=== PATIENT | female | born 1990 | race African-American/Black ===

== ENCOUNTER 2020-06-01 21:30 | Inpatient (IN) | payer OTHER ==
[2020-06-01 22:47] VITALS: BMI 33.4
[2020-06-01] MEDS ORDERED: DEXTROSE 5%-LACTATED RINGERS 1,000 ML IV SCH (23:30)
[2020-06-01 23:34] LABS: BASO % 0.2 % (0-2.0); EOS % 1.3 % (0-4.5); HEMOGLOBIN 11.3 GM/dL (10.7-15.3); LYMPH % 12.3 % (8-40); MCH 31.1 pg (25.7-33.7); MCHC 33.2 g/dl (32.0-36.0); MEAN CELL VOLUME 93.7 fl (80-96); MEAN PLT VOLUME 10.7 fl (7.5-11.1); NEUT % 79.2 % (42.8-82.8); PLATELET COUNT 187 K/MM3 (134-434); RBC 3.62 M/mm3 (3.60-5.2); RDW 13.4 % (11.6-15.6); WHITE BLOOD COUNT 12.4 K/mm3 (4.0-10.0)
[2020-06-01 23:44] LABS: INR 0.98 (0.83-1.09); PROTHROMBIN TIME (PATIENT) 11.6 SEC (9.7-13.0)
[2020-06-01 23:47] LABS: ACTIVATED PTT 25.6 SECONDS (25.2-36.5)
[2020-06-02] LABS: BLOOD UREA NITROGEN 6.4 mg/dL (7-18); CREATININE 0.6 mg/dL (0.55-1.3); POTASSIUM 3.8 mmol/L (3.5-5.1)
[2020-06-02] MEDS ORDERED: DEXTROSE 5%-LACTATED RINGERS 1,000 ML IV SCH ×2 (08:00→21:45)
[2020-06-02] MEDS ORDERED: PROMETHAZINE HCL 25 MG/1 ML VIAL IVPB ONE (08:00)
[2020-06-02] MEDS ORDERED: BUTORPHANOL TARTRATE 1 MG/ML VIAL IVPB ONE (08:00)
--- NOTE | 2020-06-02 08:04 | HP ---
Past Medical History - Admission Chief Complaint: post date for induction History Source: Patient Limitations to Obtaining History: No Limitations - Past Medical History URGENT CARE PHYSICIAN ASSISTANT: No: Alzheimer's, CVA, Dementia, Migraine, Multiple Sclerosis, Peripheral Neuropathy, Parkinson's, Seizure, Syncope, TIA, Vertigo, Other Cardiovascular: No: AFIB, Aneurysm, Aortic Insufficiency, Aortic Stenosis, CAD, CHF, Deep Vein Thrombosis, HTN, Hyperlipdemia, VA, Mitral Insufficiency, Mitral Stenosis, Murmur, Pulmonary Hypertension, Other Pulmonary: No: Asthma, Bronchitis, Cancer, COPD, O2 Dependent, Pneumonia, Previously Intubated, Pulmonary Embolus, Pulmonary Fibrosis, Sleep Apnea, Other Gastrointestinal: No: Ascites, Cancer, Constipation, Crohn's Disease, Diverticulitis, Diverticulosis, Esophageal Varices, Gastritis, GERD, GI Bleed, Hemorrhoids, Hiatal Hernia, Inflamatory Bowel Disease, Irritable Bowel Disease, Pancreatitis, Peptic Ulcer Disease, Ulcerative Colitis, Other Hepatobiliary: No: Cirrhosis, Cholelithiasis, Cholecystitis, Choledo cholithiasis, Hepatitis A, Hepatitis B, Hepatitis C, Other Renal/: No: Renal Failure, Renal Inusuff, BPH, Cancer, Hematuria, Hemodialysis, Neurogenic Bladder, Renal Calculi, UTI, Other Reproductive: No: Ectopic , Endometriosis, Fibroids, PID, Polycystic Ovary Syndrome, Postmenopausal, Other ...: 1 ...Para: 0 ...Term: 0 ...: 0 ...Spon : 0 ...Induced : 0 ...Living Children: 0 ...Multiple Gestation: 0 ... Weeks Gestation by Dates: 40.6 ...EDC by Dates: 05/26/20 Heme/Onc: No: Anemia, B12 Deficiency, Bleeding Disorder, Cancer, Current Chemotherapy, Current Radiation Therapy, Hemochromatosis, Hypercoaguable State, Myeloproliferative Synd, Sickle Cell Disease, Sickle Cell Trait, Thrombocytopenia, Other Infectious Disease: No: AIDS, C-Diff, Herpes Zoster, HIV, MRSA, STD's, Tuberculosis, VREF, Other Psych: No: Addictions, Anxiety, Bipolar, Depression, Panic, Psychosis, Schizophrenia, Other Musculoskeletal: No: Bursitis, Chronic low back pain, Hemiparesis, Hemiplegia, Osteoarthritis, Paraplegia, Other Rheumatology: No: Fibromyalgia, Gout, Lupus, Rheumatoid Arthritis, Sarcoidosis, Vasculitis, Other ENT: No: Allergic Rhinitis, Sinusitis, Other Endocrine: No: [place] Line's Disease, Sumner's Disease, Diabetes Insipidus, Diabetes Mellitus, Hyperparathyroidism, Hyperthyroidism, Hypothyroidism, Osteopenia, SIADH, Other Dermatology: No: Basal Cell, Cellulitis, Eczema, Melanoma, Psoriasis, Squamous Cell, Other - Past Surgical History Past Surgical History: No: None, AAA Repair, AICD, Amputation, Appendectomy, Arthrosocopy, AV Fistula/Graft, Bariatric Surgery, Breast Biopsy, Bypass, CABG, Carotid Endarterectomy, Cataract Removal, Cholecystectomy, Colectomy, Colonoscopy, Colostomy, Craniotomy, , Cystectomy, Hernia Repair, Hysterectomy, Ileal Conduit, Ileosotomy, Joint Replacement, Kidney Transplant, Laminectomy, Liver Transplant, Mastectomy, Nephrectomy, Oopherectomy, Orchiectomy, Permanent Pacemaker, Prostatectomy, Splenectomy, Stent, Thoracotomy, TURP, Tonsillectomy, Tubal Ligation, Upper Endoscopy, Valve Replacement, Vasectomy, Vein Stripping/Ligation Hx Myomectomy: No Hx Transabdominal Cerclage: No - Advance Directives Advance Directives: Yes: Living Will - Smoking History Smoking history: Never smoked Have you smoked in the past 12 months: No - Alcohol/Substance Use Hx Alcohol Use: No History of Substance Use: reports: None - Social History Usual Living Arrangement: Yes: With Significant Other Do you think of yourself as: Straight/Heterosexual ADL: Independent History of Recent Travel: No Home Medications - Allergies Allergies/Adverse Reactions: Allergies Allergy/AdvReac Type Severity Reaction Status Date / Time azithromycin [From Zithromax] Allergy Mild Rash Verified 06/01/20 22:05 - Home Medications Home Medications: Ambulatory Orders Mv-Mn/Iron/FA/Herbal/Digestive [ One Tablet] 1 each PO DAILY 06/01/20 Family Medical History Family History: Denies Review of Systems - Review of Systems Constitutional: reports: No Symptoms Eyes: reports: No Symptoms HENT: reports: No Symptoms Neck: reports: No Symptoms Cardiovascular: reports: No Symptoms Respiratory: reports: No Symptoms Gastrointestinal: reports: No Symptoms Genitourinary: reports: No Symptoms Breasts: reports: No Symptoms Reported Musculoskeletal: reports: No Symptoms Integumentary: reports: No Symptoms Neurological: reports: No Symptoms Endocrine: reports: No Symptoms Hematology/Lymphatic: reports: No Symptoms Psychiatric: reports: No Symptoms Physical Exam - Maternity Vital Signs: Vital Signs Temperature 98.2 F 06/02/20 06:00 Pulse Rate 83 06/02/20 06:00 Respiratory Rate 18 06/02/20 06:00 Blood Pressure 93/50 L 06/02/20 06:00 O2 Sat by Pulse Oximetry (%) Constitutional: Yes: Well Nourished, No Distress, Calm Eyes: Yes: WNL, Conjunctiva Clear, EOM Intact HENT: Yes: WNL, Atraumatic, Normocephalic Neck: Yes: WNL, Supple, Trachea Midline Cardiovascular: Yes: WNL, Regular Rate and Rhythm Breast(s): Yes: WNL - Abdominal Exam/OB Number of Fetuses: Single Presentation: Vertex Contractions: Yes Regularity: Irregular Intensity: Mild Monitor Mode: External Heart Rate Location: [facility] Category: I Accelerations: Uniform Decelerations: None - Vaginal Exam/OB Vaginal Bleeding: No Speculum Exam: No Dilatation (cm): 1 Effacement (%): 60 Amniotic Membrane Status: Intact Presentation: Vertex/Position Station: -2 - Physical Exam Musculoskeletal: Yes: WNL Extremities: Yes: WNL Edema: Yes Edema: LUE: 1+, RUE: 1+, LLE: 1+, RLE: 1+ Integumentary: Yes: WNL Deep Tendon Reflex Grade: Normal +2 ...Motor Strength: WNL Psychiatric: Yes: WNL, Alert, Oriented - Labs Lab Results: CBC, BMP 06/01/20 22:20 06/01/20 22:20 Hemorrhage Risk Assessment - Risk Factors Medium Risk Factors: Yes: None High Risk Factors: Yes: None Risk Score: 1 Risk Level: Medium Risk Assessment/Plan for induction, hx of tachy last night, and recoverable deccels
[2020-06-02] MEDS ORDERED: OXYTOCIN 30 UNITS in 0.9% NS 30 UNIT/500 ML INFUS.BAG IVPB SCH (08:15)
[2020-06-02] MEDS ORDERED: OXYTOCIN 30 UNITS in 0.9% NS 30 UNIT/500 ML INFUS.BAG IVPB ONE (08:19)
[2020-06-02] MEDS ORDERED: PCA PUMP NR ONE ×2 (14:14→19:11)
[2020-06-02] MEDS ORDERED: FENTANYL/BUPIVACAINE/NS/PF - PCEA - 50 ML DISP.SYRIN EP ONE ×3 (14:15→19:12)
[2020-06-02] MEDS ORDERED: NALOXONE HCL 0.4 MG/ML VIAL IVPUSH PRN (15:02)
[2020-06-02] MEDS ORDERED: FENTANYL/BUPIVACAINE/NS/PF - PCEA - 50 ML DISP.SYRIN EP SCH (15:15)
[2020-06-02] MEDS ORDERED: ELECTROLYTE-148 SOLN 1,000 ML IV SCH ×2 (17:45→21:45)
[2020-06-02] MEDS ORDERED: ELECTROLYTE-148 SOLN 500 ML IV ONE (21:43)
[2020-06-02] MEDS ORDERED: CITRIC ACID/SODIUM CITRATE 30 ML UNIT-DOSE CUP PO ONE (21:43)
--- NOTE | 2020-06-02 21:46 | PN ---
Progress Note (short form) - Note Progress Note: 1 pm, vidal inplaced, 1 cm -2, 60%, arom for pitocin
--- NOTE | 2020-06-02 21:47 | PN ---
Progress Note (short form) - Note Progress Note: 6 pm, 4 to 5 cm, kellyoxana fell out, -2, op, nst reactive, continue pitocin , comfort w epidural
--- NOTE | 2020-06-02 21:48 | PN ---
Progress Note (short form) - Note Progress Note: 930 pm, late deccel, and variable deccel, no cervical change x 5 hrs, c/o pain again, will proceed for c s
--- NOTE | 2020-06-02 21:48 | PN ---
Progress Note (short form) - Note Progress Note: 8pm, 4 to 5 cm, same cervix, top off given, nst reactive, continue pitocin.,
[2020-06-02] MEDS ORDERED: morphine SULFATE/PF 0.5 MG/ML (2cc Syringe - QUVA) ONE ×2 (21:59)
[2020-06-02] MEDS ORDERED: OXYTOCIN 20 UNITS in 0.9% NS 20 UNIT/1,000 ML INFUS.BAG IV ONE (22:43)
[2020-06-02] MEDS ORDERED: SENNOSIDES/DOCUSATE COMBO (SENNA PLUS) TABLET (UD) PO PRN (23:08)
[2020-06-02] MEDS ORDERED: oxyCODONE HCL 5 MG TABLET PO PRN ×2 (23:08)
[2020-06-02] MEDS ORDERED: METHYLERGONOVINE MALEATE 0.2 MG/1 ML AMP IM PRN (23:08)
--- NOTE | 2020-06-02 23:13 | OP ---
Operative Note - Note: Operative Date: 06/02/20 Pre-Operative Diagnosis: non reassuring fht, f t progress, op , post date Operation: primary lt c s Post-Operative Diagnosis: Same as Pre-op Surgeon: Adrian Cosby Supervisor Parachute Manufacturing: Omar Arnold Anesthesiologist/ROAD MACHINERY INSPECTOR: Beau Lyons Anesthesia: Epidural Estimated Blood Loss (mls): 600 (no complications ) Operative Report Dictated: Yes
[2020-06-02] MEDS ORDERED: OXYTOCIN 20 UNITS in 0.9% NS 20 UNIT/1,000 ML INFUS.BAG IV SCH (23:15)
[2020-06-03] MEDS ORDERED: IBUPROFEN 800 MG/8 ML IJ IVPB ONE (00:10)
[2020-06-03] MEDS: IBUPROFEN 800 MG/8 ML IJ IVPB PRN ×2 (00:15→11:27)
[2020-06-03 07:28] LABS: BASO % 0.3 % (0-2.0); EOS % 0.5 % (0-4.5); HEMATOCRIT 30.8 % (32.4-45.2); HEMOGLOBIN 10.1 GM/dL (10.7-15.3); LYMPH % 5.4 % (8-40); MCH 30.9 pg (25.7-33.7); MCHC 32.9 g/dl (32.0-36.0); MEAN CELL VOLUME 93.9 fl (80-96); MONO % 7.5 % (3.8-10.2); NEUT % 86.3 % (42.8-82.8); PLATELET COUNT 154 K/MM3 (134-434); RBC 3.28 M/mm3 (3.60-5.2); RDW 13.5 % (11.6-15.6)
[2020-06-03] MEDS: PRENATAL VITAMINS W/ FOLIC ACID TABLET (FP) PO SCH ×2 (09:38→09:40)
[2020-06-03] MEDS: ENOXAPARIN NA (PORCINE) 40 MG/0.4 ML DISP.SYRIN SQ SCH (09:38)
--- NOTE | 2020-06-03 15:38 | PN ---
Progress Note (short form) - Note Progress Note: 29 F s/p C/S. pt w/o complaints. pain controlled. good result of anesthetic care
[2020-06-03] MEDS: ACETAMINOPHEN 325 MG TABLET (FP) PO PRN (16:26)
[2020-06-03] MEDS: SIMETHICONE 80 MG TAB.CHEW (FP) PO PRN (16:26)
[2020-06-03] MEDS: IBUPROFEN 600 MG TABLET (FP) PO PRN (16:27)
--- NOTE | 2020-06-03 20:18 | PN ---
Post Progress Note Post Day: 1 Type of Delivery: Primary C/S Vital Signs: Vital Signs Temperature 98.6 F 06/03/20 18:00 Pulse Rate 82 06/03/20 18:00 Respiratory Rate 20 06/03/20 18:00 Blood Pressure 100/63 06/03/20 18:00 O2 Sat by Pulse Oximetry (%) 96 06/03/20 01:00 Breast Exam: Yes: Soft Uterus: Yes: Fundus Firm, Fundus below umbilicus Incision: Yes: Dressing dry and intact, Sutures intact Abdomen/GI: Yes: Abdomen soft, Passing flatus Lochia: Yes: Serosa Lochia, amount: Small Extremities: Yes: Calves non-tender Perineum: Yes: Intact Activity: Ambulating (doing well, oob , regular diet ) - Labs Labs: CBC WBC 17.0 K/mm3 (4.0-10.0) H 06/03/20 07:12 RBC 3.28 M/mm3 (3.60-5.2) L 06/03/20 07:12 Hgb 10.1 GM/dL (10.7-15.3) L 06/03/20 07:12 Hct 30.8 % (32.4-45.2) L 06/03/20 07:12 MCV 93.9 fl (80-96) 06/03/20 07:12 MCH 30.9 pg (25.7-33.7) 06/03/20 07:12 MCHC 32.9 g/dl (32.0-36.0) 06/03/20 07:12 RDW 13.5 % (11.6-15.6) 06/03/20 07:12 Plt Count 154 K/MM3 (134-434) 06/03/20 07:12 MPV 10.0 fl (7.5-11.1) 06/03/20 07:12 Absolute Neuts (auto) 14.7 K/mm3 (1.5-8.0) H 06/03/20 07:12 Neutrophils % 86.3 % (42.8-82.8) H 06/03/20 07:12 Lymphocytes % 5.4 % (8-40) L D 06/03/20 07:12 Monocytes % 7.5 % (3.8-10.2) 06/03/20 07:12 Eosinophils % 0.5 % (0-4.5) 06/03/20 07:12 Basophils % 0.3 % (0-2.0) 06/03/20 07:12 Nucleated RBC % 0 % (0-0) 06/03/20 07:12
--- NOTE | 2020-06-03 21:59 | OP ---
DATE OF OPERATION: 06/03/2020 PREOPERATIVE DIAGNOSES: Non-reassuring heart tracing, failure to progress, occiput posterior position, and post dates. POSTOPERATIVE DIAGNOSES: Non-reassuring heart tracing, failure to progress, occiput posterior position, and post dates. PROCEDURE: Primary low transverse section. SURGEON: Adrian Cosby MD CRM DYNAMICS DEVELOPER: KATHLEEN Royal ANESTHESIOLOGIST: Dr. Lyons. ANESTHESIA: Epidural. INDICATION: A 29-year-old female patient, 41 weeks and 1 day, came into the hospital for induction process, and the patient could not take it anymore either, requested to be induced. So, patient came in the night before, was supposed to get Cervidil. However, patient developed tachycardia and variable decelerations, and her cervix was 1 cm, and so, Cervidil was on hold because of nonreassuring, category 2 tracing at this point. heart rate tracing did recover to be category 1; so, Pitocin was started in the morning, and the patient had Escalante balloon. Cook balloon was placed around 1 o'clock in the afternoon, and the patient had Pitocin going since about 8-9 o'clock in the morning. Patient had epidural around 3-4 o'clock in the afternoon. She was about 4-5 cm after the Escalante balloon fell out around 5 o'clock in the afternoon. However, after 4 or 5 o'clock, baby was found to be OP presentation and had never progressed with 5 cm until another 5 hours. The baby started having some variable decelerations and late decelerations, and the decision was made for nonreassuring heart rate tracing and category 2 and remote from delivery and failure to progress. DESCRIPTION OF PROCEDURE: Patient was taken to the OR and placed on the operating table in supine position. After epidural anesthesia was re-topped off, patient had already had epidural. So, patient's abdomen and pelvis were prepped and draped in the usual sterile manner. Pfannenstiel incision was made. Incision was made through skin and subcutaneous tissue, and the fascia was nicked in the midline. The fascia extended bilaterally. Intraperitoneal cavity was entered. Bladder flap was not created. The low transverse segment was entered. Baby delivered from OP presentation. Baby was handed over to research test engine evaluator after umbilical cord doubly clamped and cut. Cord blood gases were obtained. Placenta was removed. Uterus was closed in single layer, first in interlocking Vicryl sutures. Good hemostasis. Both gutters were clean. Both ovaries, fallopian tubes, and uterus were within normal limits. No complications. She tolerated the procedure well. The peritoneum was closed. The fascia was closed. Skin was closed. She was transferred to recovery room in stable condition. MD JARED MARTINEZ/[id number]
[2020-06-03] MEDS ORDERED: BISACODYL 10 MG SUPP.RECT RC PRN (23:08)
[2020-06-04] MEDS: IBUPROFEN 600 MG TABLET (FP) PO PRN ×4 (01:12→21:52)
[2020-06-04] MEDS: SIMETHICONE 80 MG TAB.CHEW (FP) PO PRN ×4 (01:12→21:52)
[2020-06-04] MEDS: ACETAMINOPHEN 325 MG TABLET (FP) PO PRN ×4 (01:12→21:53)
[2020-06-04] MEDS: ENOXAPARIN NA (PORCINE) 40 MG/0.4 ML DISP.SYRIN SQ SCH (09:36)
[2020-06-04] MEDS: PRENATAL VITAMINS W/ FOLIC ACID TABLET (FP) PO SCH (09:40)
--- NOTE | 2020-06-04 11:52 | PN ---
Post Progress Note Post Day: 2 Type of Delivery: Primary C/S Vital Signs: Vital Signs Temperature 98.1 F 06/04/20 09:42 Pulse Rate 81 06/04/20 09:42 Respiratory Rate 20 06/04/20 09:42 Blood Pressure 96/63 06/04/20 09:42 O2 Sat by Pulse Oximetry (%) 96 06/03/20 01:00 Breast Exam: Yes: Soft Uterus: Yes: Fundus Firm, Fundus below umbilicus, Non-tender Incision: Yes: Dressing dry and intact, Sutures intact Abdomen/GI: Yes: Abdomen soft, Passing flatus, Tolerating PO Lochia: Yes: Serosa Lochia, amount: Small Extremities: Yes: Calves non-tender Perineum: Yes: Intact (doing well, will dc pt home tomorrow ) Activity: Ambulating - Labs Labs: CBC WBC 17.0 K/mm3 (4.0-10.0) H 06/03/20 07:12 RBC 3.28 M/mm3 (3.60-5.2) L 06/03/20 07:12 Hgb 10.1 GM/dL (10.7-15.3) L 06/03/20 07:12 Hct 30.8 % (32.4-45.2) L 06/03/20 07:12 MCV 93.9 fl (80-96) 06/03/20 07:12 MCH 30.9 pg (25.7-33.7) 06/03/20 07:12 MCHC 32.9 g/dl (32.0-36.0) 06/03/20 07:12 RDW 13.5 % (11.6-15.6) 06/03/20 07:12 Plt Count 154 K/MM3 (134-434) 06/03/20 07:12 MPV 10.0 fl (7.5-11.1) 06/03/20 07:12 Absolute Neuts (auto) 14.7 K/mm3 (1.5-8.0) H 06/03/20 07:12 Neutrophils % 86.3 % (42.8-82.8) H 06/03/20 07:12 Lymphocytes % 5.4 % (8-40) L D 06/03/20 07:12 Monocytes % 7.5 % (3.8-10.2) 06/03/20 07:12 Eosinophils % 0.5 % (0-4.5) 06/03/20 07:12 Basophils % 0.3 % (0-2.0) 06/03/20 07:12 Nucleated RBC % 0 % (0-0) 06/03/20 07:12
--- NOTE | 2020-06-04 11:55 | DS ---
Physical Exam-REHABILITATION INSPECTOR Vital Signs: Vital Signs Temperature 98.1 F 06/04/20 09:42 Pulse Rate 81 06/04/20 09:42 Respiratory Rate 20 06/04/20 09:42 Blood Pressure 96/63 06/04/20 09:42 O2 Sat by Pulse Oximetry (%) 96 06/03/20 01:00 Constitutional: Yes: Well Nourished, No Distress, Calm Eyes: Yes: WNL, Conjunctiva Clear, EOM Intact HENT: Yes: WNL, Atraumatic, Normocephalic Neck: Yes: WNL, Supple, Trachea Midline Cardiovascular: Yes: WNL, Regular Rate and Rhythm Respiratory: Yes: WNL, Regular, CTA Bilaterally Gastrointestinal: Yes: WNL, Normal Bowel Sounds, Soft ...Rectal Exam: Yes: WNL Renal/: Yes: WNL Pelvis: Yes: WNL External Genitalia: Yes: Normal Internal Exam Deferred: Yes Vaginal Exam: Yes: Normal Cervix: Yes: Normal Uterus: Yes: Normal ....Post : Yes: Uterus firm, Uterus non-tender Breast(s): Yes: WNL Musculoskeletal: Yes: WNL Extremities: Yes: WNL Edema: Yes Edema: LUE: 1+, RUE: 1+, LLE: 1+, RLE: 1+ Integumentary: Yes: WNL Wound/Incision: Yes: Clean/Dry, Well Approximated Neurological: Yes: WNL, Alert, Oriented ...Motor Strength: WNL Psychiatric: Yes: WNL, Alert, Oriented Labs: CBC, BMP 06/03/20 07:12 06/01/20 22:20 Delivery - Delivery Section: Primary Type of Anesthesia: Epidural Episiotomy/Laceration: None EBL (cc): 600 Delivery, Single - Stages of Labor Date 1st Stage Initiatied: 06/02/20 Time 1st Stage Initiated: 14:00 Date of Delivery: 06/02/20 Time of Delivery: 22:25 Time Placenta Delivered: 22:26 - Condition of Dope House Operator Helper/Supervisor Motor Vehicle Assembly Present: Yes Name: Donna Keller Infant Gender: Female Weight: 3.345 kg Position: OP Total Hours ROM (Hrs/Mins): 9 HOURS 11 MINUTES - 1 Minute Total Score: 9 5 Minutes Total Score: 9 - Feeding Plan Initial Plan: Elected not to breastfeed exclusively throughout hospitalization Discharge Summary Problems reviewed: Yes Reason For Visit: LABOR Procedures: Principal: primary lt c s Other Procedures: none Hospital Course: uneventful Health Concerns: none Plan of Treatment: oob as much as possible Condition: Good - Instructions Diet, Activity, Other Instructions: Physical activity Resume your normal everyday activity as tolerated no heavy lifting or exercise until seen by your surgeon. You may walk unlimited erma of and climb stairs. You may resume driving the car when you feel safe and comfortable behind the wheel. No sexual activity as instructed. Wound care If you have a bandage, leave it on, and keep dry for 48-72 hours. After that ti me discard the outer bandage. If they are tapes on the skin under the out of bandage leave them in place. They will peel off in the next 7 to 10 days. Do Not Peel them off. You may shower the day after surgery. If there are tapes present on the skin, you may shower over them. Diet There are no dietary restrictions. Eat healthy, high-fiber foods. Drink 6 to 8 glasses of liquid each day. This will assist in keeping your bowels are regular. Pain management You may take Tylenol or acetaminophen or Ibuprofen (for example, Motrin, Advil etc.) from my pain prescription medication is ordered should be taken as prescribed for moderate to severe pain. Call MD for any of the following: call dr ford for 2 weeks appointment Severe pain not relieved by medication Fever of 101 or higher Excessive bleeding or drainage on dressing Inability to urinate Disposition: HOME - Home Medications Comprehensive Discharge Medication List: Ambulatory Orders Mv-Mn/Iron/FA/Herbal/Digestive [ One Tablet] 1 each PO DAILY 06/01/20 Prescription Drug Monitoring Program (I-STOP) results: I-STOP reviewed and no issues identified
[2020-06-05] MEDS: ACETAMINOPHEN 325 MG TABLET (FP) PO PRN ×2 (04:56→10:29)
[2020-06-05] MEDS: SIMETHICONE 80 MG TAB.CHEW (FP) PO PRN ×2 (04:56→10:31)
[2020-06-05] MEDS: IBUPROFEN 600 MG TABLET (FP) PO PRN ×2 (04:57→10:30)
[2020-06-05] MEDS: PRENATAL VITAMINS W/ FOLIC ACID TABLET (FP) PO SCH (09:46)
[2020-06-05] MEDS: ENOXAPARIN NA (PORCINE) 40 MG/0.4 ML DISP.SYRIN SQ SCH (09:47)
[2020-06-05 10:45] VITALS: BP 105/64; PULSE 73; TEMP 98
--- NOTE | 2020-06-07 13:17 | PATH ---
Surgical Pathology Report Patient Name: BRITTNEY AUGUSTIN [facility]. Rec. #: [id number] /Age/Gender: 1990 (Age: 29) / F Account: [id number] Location: [facility] OBS/PATROL COMMUNITY SERVICE OFFICER Taken: 06/02/2020 Received: 06/05/2020 Reported: 06/07/2020 Physicians: Adrian Cosby MD Specimen(s) Received PLACENTA Clinical History Final Diagnosis PLACENTA: THIRD TRIMESTER PLACENTA WITH MILD NONSPECIFIC CHRONIC DECIDUITIS. TRIVASCULAR CORD. MEMBRANES WITH NO DIAGNOSTIC ABNORMALITIES. Electronically Signed Trever Harrison M.D. Gross Description The specimen is received fresh labeled placenta and is a 502gram, 20 x16 x 1.9 and cm. placenta with attached membranes and umbilical cord. The attached membranes are glistening, translucent, and insert marginally. The umbilical cord measures 31 cm. in length and averages 1.5 cm. in diameter. The cord inserts centrally, 5 centimeter to the nearest margin. No true knots or strictures are identified. Cut surface of the umbilical cord reveals 3 vessels. Sectioning reveals red-brown, spongy parenchyma. No lesions are identified. Broadcast Engineer sections are submitted in three cassettes as follows: 1- membrane rolls and umbilical cord; 2-3- full thickness sections of placenta KWS/06/05/2020 sulki/06/05/2020
== END 2020-06-05 14:35 | disposition home or self-care (01) | DRG 788 ==
LOC: JLDR 21:30 → J3W 06-03 01:00
PROVIDERS: ADMIT Obstetrics & Gynecology; ATTEND Obstetrics & Gynecology
PROC: 10907ZC Drainage of Amniotic Fluid, Therapeutic from Products of Conception, Via Natural or Artificial Opening (ICD-10-PCS; principal; 2020-06-02)
PROC: 0U7C7ZZ Dilation of Cervix, Via Natural or Artificial Opening (ICD-10-PCS; 2020-06-02)
PROC: 10D00Z1 Extraction of Products of Conception, Low, Open Approach (ICD-10-PCS; 2020-06-03)
DX: O48.0 Post-term pregnancy (principal); O76 Abnormality in fetal heart rate and rhythm complicating labor and delivery; O62.0 Primary inadequate contractions; O32.8XX0 Maternal care for other malpresentation of fetus, not applicable or unspecified; Z3A.40 40 weeks gestation of pregnancy; Z37.0 Single live birth
CPT/HCPCS: 36415; 80048; 85025; 85610; 85730; 86780; 86850; 86900; 86901; 87389; 88307-TC